=== PATIENT | male | born 1970 | race Caucasian/White ===

== ENCOUNTER 2017-09-09 17:45 | Emergency (ER) | payer BC ==
[2017-09-09 18:46] VITALS: BP 132/85
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
== END 2017-09-09 19:10 | disposition home or self-care (01) ==
LOC: UCCORT 17:45
DX: L08.9 Local infection of the skin and subcutaneous tissue, unspecified (principal); R59.1 Generalized enlarged lymph nodes; F17.210 Nicotine dependence, cigarettes, uncomplicated; X58.XXXA Exposure to other specified factors, initial encounter
CPT/HCPCS: 99212; G0463

== ENCOUNTER 2017-09-10 23:50 | Emergency (ER) | payer BC ==
[2017-09-11 00:11] VITALS: BP 128/91
== END 2017-09-11 02:57 | disposition left against medical advice (07) ==
LOC: ED 23:50
DX: R21 Rash and other nonspecific skin eruption (principal); Z53.21 Procedure and treatment not carried out due to patient leaving prior to being seen by health care provider

== ENCOUNTER 2018-08-11 20:25 | Emergency (ER) | payer BC, OTHER ==
[2018-08-11 21:08] VITALS: BP 106/67
--- NOTE | 2018-08-12 11:02 | UC ---
- Progress Note Progress Note: no x-ray 08/11/18 Discharge - Sign-Out/Discharge Documenting (check all that apply): Patient Departure All imaging exams completed and their final reports reviewed: No Studies - Discharge Plan Condition: Stable Disposition: LEFT WITHOUT BEING SEEN Referrals: No Primary Care Phys,NOPCP [Primary Care Provider] - - Billing Disposition and Condition Condition: STABLE Disposition: Left Without Being Seen
== END 2018-08-11 21:30 | disposition left against medical advice (07) ==
LOC: UCCORT 20:25
DX: R05 Cough (principal); Z53.21 Procedure and treatment not carried out due to patient leaving prior to being seen by health care provider

== ENCOUNTER 2018-08-16 18:48 | Emergency (ER) | payer OTHER ==
[2018-08-16 19:31] VITALS: BP 117/76
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
[2018-08-16] MEDS ORDERED: Levofloxacin TAB* 500 MG PO ONE (20:10)
--- NOTE | 2018-08-17 07:59 | RAD ---
HISTORY: cough, fever, chills, pleuritic pain COMPARISONS: June 12, 2014 VIEWS: 4: Frontal dual-energy and lateral views of the chest. FINDINGS: CARDIOMEDIASTINAL SILHOUETTE: The cardiomediastinal silhouette is normal. ARI: The ari are normal. PLEURA: The costophrenic angles are sharp. No pleural abnormalities are noted. LUNG PARENCHYMA: The lungs are clear. The "pneumonia" noted within the right middle lobe on the preliminary assessment by the ER physician is not appreciated on the submitted images. ABDOMEN: The upper abdomen is clear. There is no subphrenic gas. BONES AND SOFT TISSUES: Again noted are radiopaque foreign bodies in posttraumatic deformity of the left shoulder. OTHER: None. IMPRESSION: NO ACTIVE CARDIOPULMONARY DISEASE. R2
== END 2018-08-16 20:21 | disposition home or self-care (01) ==
LOC: UCCORT 18:48
DX: J18.9 Pneumonia, unspecified organism (principal); F17.210 Nicotine dependence, cigarettes, uncomplicated
CPT/HCPCS: 71046; 99212; G0463

== ENCOUNTER 2018-09-12 21:06 | Emergency (ER) | payer OTHER ==
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
[2018-09-12] MEDS ORDERED: Dexamethasone IV* 4 MG/ML 5 ML VIAL (20 MG) IVPB ONE (21:51)
[2018-09-12] MEDS ORDERED: NS 0.9% 1000 ML* 1,000 ML IV ONE (21:51)
[2018-09-12] MEDS ORDERED: Albuterol/Ipratropium NEB.SOL* Albuterol 2.5 MG/Ipratropium 0.5 MG 3 ML INH ONE (21:52)
[2018-09-12 22:04] LABS: ABS Basophils 0.1 10^3/ul (0-0.2); ABS Eosinophils 0.2 10^3/ul (0-0.6); ABS Lymphocytes 3.9 10^3/ul (1.0-4.8); ABS Monocytes 0.7 10^3/ul (0-0.8); ABS Nucleated RBC 0 10^3/ul; Eosinophil % 2.4 % (0-6); Hematocrit 44 % (42-52); Hemoglobin 15.4 g/dl (14.0-18.0); Mean Corpuscular HGB Conc 35 g/dl (31-36); Mean Corpuscular Hemoglobin 35 pg (27-31); Mean Corpuscular Volume 101 fL (80-94); Mean Platelet Volume 7.5 fL (7.4-10.4); Nucleated Red Blood Cells % 0.1; Platelet Count 230 10^3/ul (150-450); Red Blood Count 4.36 10^6/ul (4.00-5.40); Red Cell Distribution Width 13 % (10.5-15); White Blood Count 8.8 10^3/ul (3.5-10.8)
[2018-09-12 22:12] LABS: INR 0.83 (0.77-1.02)
[2018-09-12] MEDS ORDERED: Iohexol 350* (CONTRAST) 500 ML MDV IV ONE (22:34)
[2018-09-13 00:08] VITALS: BP 107/78
--- NOTE | 2018-09-13 00:16 | RAD ---
EXAM: CT Angiography Chest With Intravenous Contrast EXAM DATE/TIME: 09/12/2018 11:11 PM CLINICAL HISTORY: 48 years old, male; Signs and symptoms; Shortness of breath; Additional info: Difficulty breathing TECHNIQUE: Axial computed tomographic angiography images of the chest with intravenous contrast using CT angiography protocol. All CT scans at this facility use at least one of these dose optimization techniques: automated exposure control; mA and/or kV adjustment per patient size (includes targeted exams where dose is matched to clinical indication); or iterative reconstruction. Coronal and sagittal reformatted images were created and reviewed. MIP reconstructed images were created and reviewed. CONTRAST: 59 ml of OMNI 350 administered intravenously. COMPARISON: DX CXR CHEST PA LAT 2 VWS 08/16/2018 7:53 PM FINDINGS: Pulmonary arteries: Pulmonary arteries are well opacified to the subsegmental branches. Normal caliber main pulmonary artery. No filling defects throughout the pulmonary artery tree. Aorta: Normal caliber aorta with no evidence of dissection or rupture. Lungs: No pulmonary nodules, masses, or consolidations. No bronchiectasis, peribronchial thickening, or luminal defects. Pleural space: Normal. No pneumothorax. No pleural effusion. Heart: Normal. No cardiomegaly. No pericardial effusion. Thyroid: No thyroid nodules. Bones/joints: No fractures. No suspicious bone lesions. Soft tissues: Normal. Lymph nodes: Normal. No enlarged lymph nodes. IMPRESSION: No pulmonary emboli. No additional findings to correlate with patient's symptomatology. To contact [facility] with a general question: [facility] - [phone] For direct physician to physician contact: Physician Hotline - [phone] [facility] ([facility] Facility ID #[id number])
== END 2018-09-13 00:30 | disposition left against medical advice (07) ==
LOC: ED 21:06
DX: R06.02 Shortness of breath (principal); R05 Cough; R07.89 Other chest pain; Z91.030 Bee allergy status; F17.210 Nicotine dependence, cigarettes, uncomplicated
CPT/HCPCS: 36415; 71275; 80053; 83605; 83735; 83880; 84484; 85025; 85610; 85730; 93005; 96374; 99283; A9270-GY; J1100; Q9967

== ENCOUNTER 2019-02-02 18:19 | Emergency (ER) | payer OTHER ==
[2019-02-02 18:44] VITALS: BP 121/80
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
[2019-02-02] MEDS ORDERED: HYDROcodone/ACETAMIN 5-325 MG* 1 TAB PO ONE (20:36)
[2019-02-02] MEDS ORDERED: Ketorolac INJ* 60 MG/2 ML VIAL IM ONE (21:02)
--- NOTE | 2019-02-03 14:41 | UC ---
- EKG/XRAY/CT Xray Comments: wet read correct Course/Dx - Diagnoses Provider Diagnoses: Back pain Discharge - Sign-Out/Discharge Documenting (check all that apply): Patient Departure All imaging exams completed and their final reports reviewed: Yes - Discharge Plan Condition: Stable Disposition: HOME Prescriptions: Cyclobenzaprine TAB* [Flexeril 10 MG TAB*] 10 mg PO TID PRN #10 tab PRN Reason: Spasms - Back Naproxen [Naprosyn 500 mg tab] 500 mg PO BID 5 Days #10 tablet Patient Education Materials: Back Pain (ED) Referrals: Tanner Keith MD [Primary Care Provider] - Additional Instructions: FOLLOW UP SCHEDULED FOR 02/10/19. GO TO THE ER FOR ANY WORSENING. - Billing Disposition and Condition Condition: STABLE Disposition: Home
== END 2019-02-02 22:00 | disposition home or self-care (01) ==
LOC: UCCORT 18:19
DX: M54.9 Dorsalgia, unspecified (principal); J44.9 Chronic obstructive pulmonary disease, unspecified; F17.210 Nicotine dependence, cigarettes, uncomplicated; Z91.030 Bee allergy status
CPT/HCPCS: 71046; 81003; 96372; 99212; G0463; J1885

== ENCOUNTER 2019-10-25 19:15 | Emergency (ER) | payer SELFPAY ==
[2019-10-25 20:03] VITALS: BP 137/88
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
== END 2019-10-25 21:38 | disposition home or self-care (01) ==
LOC: UCCORT 19:15
DX: S20.212A Contusion of left front wall of thorax, initial encounter (principal); J44.9 Chronic obstructive pulmonary disease, unspecified; F17.210 Nicotine dependence, cigarettes, uncomplicated; W10.9XXA Fall (on) (from) unspecified stairs and steps, initial encounter; Y92.9 Unspecified place or not applicable; Z91.030 Bee allergy status
CPT/HCPCS: 99212; G0463